=== PATIENT | male | born 1985 ===

== ENCOUNTER 2016-12-03 07:19 | Observation (INO) | payer BC ==
--- NOTE | 2016-12-03 07:41 | ED PDOC ---
Lower Extremity Pain/Injury Time Seen by Provider: 12/03/16 07:28 Chief Complaint (Nursing): Lower Extremity Problem/Injury Chief Complaint (Provider): Right knee pain History Per: Patient History/Exam Limitations: no limitations Onset/Duration Of Symptoms: Days (xsince yesterday, 12/02/16) Current Symptoms Are (Timing): Still Present Additional Complaint(s): Tapan Burden is a 31 year old male, with no previous medical history, who presents to the emergency department with a complaint of right knee pain which occurred after walking down the stairs while performing heavy lifting yesterday. States he "felt and heard a pop". Patient reports pain with weight bearing. PMD: none provided Past Medical History Reviewed: Historical Data, Nursing Documentation, Vital Signs Vital Signs: Last Vital Signs Temp 97.0 F L 12/03/16 07:28 Pulse 73 12/03/16 07:28 Resp 16 12/03/16 07:28 BP 122/72 12/03/16 07:28 Pulse Ox 98 12/03/16 07:28 - Medical History PMH: No Chronic Diseases - Family History Family History: States: Unknown Family Hx - Allergies Allergies/Adverse Reactions: Allergies Allergy/AdvReac Type Severity Reaction Status Date / Time No Known Allergies Allergy Verified 12/03/16 07:34 Review of Systems ROS Statement: Except As Marked, All Systems Reviewed And Found Negative Musculoskeletal: Positive for: Other (Right knee pain) Physical Exam - Reviewed Nursing Documentation Reviewed: Yes Vital Signs Reviewed: Yes - Physical Exam Appears: Positive for: Well, Non-toxic, No Acute Distress Cardiovascular/Chest: Positive for: Regular Rate, Rhythm Respiratory: Positive for: CNT, Normal Breath Sounds Extremity: Positive for: Normal ROM, Tenderness (right knee medially), Swelling (right knee medially) Neurologic/Psych: Positive for: Alert, Oriented. Negative for: Other (distal neuro vascular compromise.) - ECG O2 Sat by Pulse Oximetry: 98 (RA) Pulse Ox Interpretation: Normal Medical Decision Making Medical Decision Making: Time: 7:28am Initial Impression: right knee pain Initial Plan: * x- ray knee 3 views RT * x-ray Chest 2 views * Normal Saline 1,000 ml IV per 100 mls/hr * Labs * PT * EKG * Urine dipstick * Re-evaluation Scribe Attestation: Documented by Suzanne Peralta, acting as a scribe for Kang Amin MD. Provider Scribe Attestation: All medical record entries made by the Scribe were at my direction and personally dictated by me. I have reviewed the chart and agree that the record accurately reflects my personal performance of the history, physical exam, medical decision making, and the department course for this patient. I have also personally directed, reviewed, and agree with the discharge instructions and disposition. Disposition - Clinical Impression Clinical Impression: Knee injury - Patient ED Disposition Is Patient to be Admitted: Yes - Disposition Disposition Time: 08:00 Condition: FAIR - Pt Status Changed To: Hospital Disposition Of: Observation - POA Present On Arrival: None
[2016-12-03] MEDS ORDERED: Sodium Chloride 0.9% 1,000 ML IV STA (07:48)
--- NOTE | 2016-12-03 08:11 | CP.PCM.HP ---
History of Present Illness - History of Present Illness History of Present Illness: Chief Complaint : Severe Right Knee Pain HPI: 31 y/o gent, no significant PMH, presented to the ED because of severe right knee pain. 5 days ago, while playing wrestling with a friend, he made a step backwards and as soon as his right foot touched the ground , he felt a "pop " and experienced severe pain. He then started having right knee pain , worse on ambulation. He took NSAIDs for the pain however despite these, his pain persisted and worsened. His right knee would buckle when he ambulates and because of this and the increasing pain, he presented to the ED. Present on Admission - Present on Admission Any Indicators Present on Admission: No History of DVT/PE: No History of Uncontrolled Diabetes: No Urinary Catheter: No Decubitus Ulcer Present: No History Surgical Site Infection Following: None Review of Systems - Review of Systems All systems: reviewed and no additional remarkable complaints except - Constitutional Constitutional: absent: Chills, Fever, Weight Loss, Weakness - EENT Eyes: absent: Blurred Vision, Change in Vision, Loss of Vision Ears: absent: Ear Discharge, Ear Pain, Abnormal Hearing Nose/Mouth/Throat: absent: Epistaxis, Nasal Congestion, Nasal Discharge, Facial Pain - Cardiovascular Cardiovascular: absent: Chest Pain, Chest Pain at Rest, Chest Pain with Activity , Dyspnea on Exertion, Edema, Orthopnea - Respiratory Respiratory: absent: Cough, Dyspnea, Hemoptysis, Dyspnea on Exertion - Gastrointestinal Gastrointestinal: absent: Abdominal Pain, Diarrhea, Nausea, Vomiting - Genitourinary Genitourinary: absent: Change in Urinary Stream, Difficulty Urinating, Dysuria - Musculoskeletal Musculoskeletal: Arthralgias, Joint Swelling (right knee ), Limited Range of Motion (Right knee) - Integumentary Integumentary: absent: Lesions, Rash, Skin Ulcer - Neurological Neurological: absent: Abnormal Movements, Dizziness, Focal Weakness, Headaches - Psychiatric Psychiatric: absent: Anxiety, Depression, Suicidal Ideation - Endocrine Endocrine: absent: Polydipsia, Polyphagia, Polyuria - Hematologic/Lymphatic Hematologic: absent: Easy Bleeding, Easy Bruising, Lymphadenopathy Past Patient History - Infectious Disease Hx of Infectious Diseases: None - Tetanus Immunizations Tetanus Immunization: Unknown - Past Medical History & Family History Past Medical History?: No Past Family History: Reviewed and not pertinent - Past Social History Smoking Status: Heavy Smoker > 10 Cigarettes Daily Chewing Tobacco Use: No Cigar Use: No 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 Alcohol: Occasional Home Situation {Lives}: With Family Domestic Violence: Negative - CARDIAC Hx Cardiac Disorders: No - PULMONARY Hx Respiratory Disorders: No - NEUROLOGICAL Hx Neurological Disorder: No - HEENT Hx HEENT Problems: No - RENAL Hx Chronic Kidney Disease: No - ENDOCRINE/METABOLIC Hx Endocrine Disorders: No - HEMATOLOGICAL/ONCOLOGICAL Hx Blood Disorders: No - INTEGUMENTARY Hx Dermatological Problems: No - MUSCULOSKELETAL/RHEUMATOLOGICAL Hx Musculoskeletal Disorders: No - GASTROINTESTINAL Hx Gastrointestinal Disorders: No - GENITOURINARY/GYNECOLOGICAL Hx Genitourinary Disorders: No - PSYCHIATRIC Hx Psychophysiologic Disorder: No Hx Substance Use: No - SURGICAL HISTORY Hx Surgeries: No - ANESTHESIA Hx Anesthesia: No Hx Anesthesia Reactions: No Hx Malignant Hyperthermia: No Has any member of the family had a problem w/ anesthesia?: No Meds Allergies/Adverse Reactions: Allergies Allergy/AdvReac Type Severity Reaction Status Date / Time No Known Allergies Allergy Verified 12/03/16 07:34 Physical Exam - Constitutional Appears: Non-toxic, No Acute Distress - Head Exam Head Exam: ATRAUMATIC, NORMAL INSPECTION, NORMOCEPHALIC - Eye Exam Eye Exam: EOMI, Normal appearance, PERRL Pupil Exam: NORMAL ACCOMODATION - ENT Exam ENT Exam: Mucous Membranes Moist, Normal External Ear Exam - Neck Exam Neck exam: Positive for: Full Rom. Negative for: Lymphadenopathy, Meningismus - Respiratory Exam Respiratory Exam: NORMAL BREATHING PATTERN. absent: Rales, Wheezes, Respiratory Distress - Cardiovascular Exam Cardiovascular Exam: REGULAR RHYTHM, +S1, +S2 - GI/Abdominal Exam GI & Abdominal Exam: Normal Bowel Sounds, Soft. absent: Tenderness - Extremities Exam Extremities exam: Positive for: joint swelling (right knee), normal capillary refill, tenderness (right knee luis medially), pedal pulses present. Negative for: calf tenderness, full ROM (right knee pain on ROM), pedal edema - Back Exam Back exam: FULL ROM, NORMAL INSPECTION. absent: CVA tenderness (L), CVA tenderness (R), paraspinal tenderness, vertebral tenderness - Neurological Exam Neurological exam: Alert, CN II-XII Intact, Oriented x3, Reflexes Normal - Psychiatric Exam Psychiatric exam: Normal Affect, Normal Mood - Skin Skin Exam: Dry, Normal Color, Warm Results - Vital Signs Recent Vital Signs: Last Vital Signs Temp 97.0 F L 12/03/16 07:28 Pulse 73 12/03/16 07:28 Resp 16 12/03/16 07:28 BP 122/72 12/03/16 07:28 Pulse Ox 98 12/03/16 08:05 - Labs Result Diagrams: 12/03/16 08:00 12/03/16 08:00 - EKG Data EKG Interpreted by: Myself EKG shows normal: Sinus rhythm Rate: Normal Assessment & Plan (1) Pain of right knee after injury Assessment and Plan: (1) Pain of right knee after injury Status: Acute Priority: High Onset Date: ~11/28/16 Severe right knee pain, heard a "pop" in the knee, buckling and sevre pain on ambulation despite analgesics Ortho consult _ Dr Jimenez Will await Ortho recommendation for any imaging Pain mgt NPO IVF CBC, CMP, PT, PTT, Type and Screen , UA CXR EKG : normal Low cardiac risk for surgery- good functional capacity ( 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 Hyperkalemia due to hemolyzed specimen - rpt Potassium Status: Acute Priority: High Onset Date: ~11/28/16 Decision To Admit - Pt Status Changed To: Hospital Disposition Of: Observation - . Bed Request Type: Med/Surg Admitting Physician: Delia Brothers
[2016-12-03 08:24] LABS: BASO % 0.4 % (0.0-2.0); EOS # 0.3 K/uL (0.0-0.7); HEMATOCRIT 50.6 % (35.0-51.0); LYMPH # 3.4 K/uL (1.0-4.3); LYMPH % 32.1 % (20.0-40.0); MEAN CELL VOLUME 89.7 fl (80.0-94.0); MEAN CORPUSCULAR HEMOGLOBIN 31.2 pg (27.0-31.0); MEAN CORPUSCULAR HGB CONC 34.7 g/dL (33.0-37.0); MEAN PLATELET VOLUME 8.7 fl (7.2-11.7); MONO # 0.8 K/uL (0.0-0.8); MONO % 7.7 % (0.0-10.0); NEUT # 6.1 K/uL (1.8-7.0); NEUT % 56.8 % (50.0-75.0); NRBC % 0.1 % (0.0-0.0); RED CELL DISTRIBUTION WIDTH 12.9 % (11.5-14.5); WHITE BLOOD COUNT 10.7 K/uL (4.8-10.8)
[2016-12-03 08:25] LABS: CHLORIDE 106 mmol/L (98-107)
[2016-12-03 08:26] LABS: SODIUM 141 mmol/l (132-148)
[2016-12-03 08:29] LABS: ALB/GLOB RATIO 1.4 (1.0-2.1); ALKALINE PHOSPHATASE 58 U/L (38-126); AST/SGOT 47 U/L (17-59); BILIRUBIN,TOTAL 0.9 mg/dl (0.2-1.3); BLOOD UREA NITROGEN 14 mg/dl (9-20); CARBON DIOXIDE 26 mmol/L (22-30); GFR AFRICAN-AMERICAN > 60; TOTAL PROTEIN 8.2 G/DL (6.3-8.2)
[2016-12-03 08:30] LABS: ALT/SGPT 37 U/L (21-72); CALCIUM 9.4 mg/dL (8.4-10.2); GLUCOSE,RANDOM 92 mg/dL (75-110)
[2016-12-03 08:33] LABS: POTASSIUM 5.1 MMOL/L (3.6-5.0)
[2016-12-03] MEDS ORDERED: Bupivacaine 0.5% Inj(30mL) ONE (08:56)
[2016-12-03] MEDS ORDERED: Lidocaine 1% Inj (20ml) ONE (08:56)
[2016-12-03] MEDS ORDERED: Bacitracin Ointment 30 GM TUBE ONE (08:57)
[2016-12-03] MEDS ORDERED: Absorbable Gelatin Sponge Size 100 ONE (09:01)
[2016-12-03] MEDS ORDERED: Midazolam 2 MG/2 ML VIAL ONE ×2 (09:16→10:48)
[2016-12-03] MEDS ORDERED: Lidocaine 2% Jelly (5 ml) TOP ONE (09:16)
[2016-12-03] MEDS ORDERED: Propofol 10 mg/ml Inj (20 ML) ONE (09:16)
[2016-12-03] MEDS ORDERED: Lidocaine Hydrochloride 5 ML INJ ONE (09:16)
[2016-12-03 09:37] LABS: BLOOD UREA NITROGEN 13 mg/dl (9-20); CALCIUM 9.2 mg/dL (8.4-10.2); CARBON DIOXIDE 25 mmol/L (22-30); CHLORIDE 107 mmol/L (98-107); GFR AFRICAN-AMERICAN > 60; GLUCOSE,RANDOM 90 mg/dL (75-110); POTASSIUM 4.4 MMOL/L (3.6-5.0); SODIUM 142 mmol/l (132-148)
[2016-12-03] MEDS ORDERED: Succinylcholine 200 mg/10 ml Inj IV ONE (10:22)
[2016-12-03] MEDS ORDERED: Lidocaine 4% (Laryng-O-Jet) Kit MM ONE (10:23)
[2016-12-03] MEDS ORDERED: Neostigmine Methylsulfate 2 MG/2 ML ML IV ONE (10:23)
[2016-12-03] MEDS ORDERED: Rocuronium 10 mg/ml (5 ml) ONE (10:26)
[2016-12-03] MEDS ORDERED: Lactated Ringer's 1,000 ML IV ONE (10:50)
--- NOTE | 2016-12-03 11:12 | RAD ---
HISTORY: preop COMPARISON: AllNo prior. TECHNIQUE: Chest PA and lateral FINDINGS: LUNGS: Suspect minor bibasilar linear atelectasis. In situ bilateral nipple rings. PLEURA: No significant pleural effusion identified. No pneumothorax apparent. CARDIOVASCULAR: Normal. OSSEOUS STRUCTURES: Minor multilevel degenerative spondylosis of the thoracic spine. . Questionable old fracture deformity right distal VISUALIZED UPPER ABDOMEN: Clavicle Normal. OTHER FINDINGS: None. IMPRESSION: Suspect minor bibasilar linear atelectasis
[2016-12-03] MEDS ORDERED: Bupivacaine HCl/Epi 0.5% 1:20000 30 ML SOL IJ ONE (12:17)
[2016-12-03] MEDS ORDERED: Lidocaine 1% Inj (20ml) IJ ONE ×2 (12:33)
--- NOTE | 2016-12-03 12:35 | RAD ---
PROCEDURE: Right knee 12/03/2016 Three views of the right knee performed. HISTORY: pain COMPARISON: No prior study available comparison. FINDINGS: BONES: No evidence of acute displaced fracture nor dislocation. The osseous structures appear intact. Very tiny posterior patellar osteophytes are felt be present. Suspect small suprapatellar joint effusion. . Note made of a tiny elliptical shaped calcific like density within the prepatellar soft tissues also appear slightly edematous. . . The changes could be posttraumatic however rule out cellulitis or other inflammatory process JOINTS: As above JOINT EFFUSION: As above. OTHER FINDINGS: None. IMPRESSION: No acute fractures. The tiny posterior patellar osteophyte formation. Suspect small suprapatellar joint effusion mild patella soft tissue swelling of uncertain etiology as detailed above. Followup studies as necessary the
--- NOTE | 2016-12-03 13:17 | CARD ---
APPROVED REPORT EKG Measurement Heart [id number] <Conclusion> Normal sinus rhythm Normal ECG
[2016-12-03] MEDS ORDERED: Bupivacaine HCl 0.25% PF (30 ml) Inj ONE (13:23)
[2016-12-03] MEDS: HYDROmorphone 0.5 mg/0.5 ml ISec IVP PRN ×3 (14:32→15:15)
[2016-12-03] MEDS ORDERED: Lactated Ringer's 1,000 ML IV SCH (14:35)
[2016-12-03] MEDS ORDERED: HYDROmorphone 0.5 mg/0.5 ml ISec ONE (14:40)
--- NOTE | 2016-12-03 14:43 | PCM.ANESB3 ---
Femoral Nerve Block - Femoral Nerve Block Date of Procedure: 12/03/16 Anesthesiologist: Dr. Perez Pre-Procedure Diagnosis: S/P right knee arhroscopy with ACL and meniscal repair Post-Procedure Diagnosis: S/P right knee arhroscopy with ACL and meniscal repair Procedure Performed: Femoral Nerve Block Right - Procedure Femoral Nerve Block: The procedure was explained to the patient that it is for the post-operative pain management. Consent was obtained after a thorough discussion with the patient regarding the benefits and possible complications of local anesthetic block of the femoral nerve at the inguinal crease area. The patient was brought to the operating room and standard monitors were applied. Time-out was held with the circulating nurse to confirm the correct side and the appropriate block. After the surgery while still under general anesthesia, patient in supine position with fully extended lower extremities and the right groin exposed. The femoral artery was then carefully palpated. The ultrasound transducer was then applied to this area in the transverse plane and the femoral nerve was visualized lateral to the femoral artery and underneath the fascia iliaca. After thorough identification, the inguinal crease area was prepped with Chloraprep solution. At this point, a #21 gauge Stimuplex 4-inch needle was inserted immediately lateral to the femoral artery pulse at the inguinal crease and advanced perpendicularly. The needle was inserted to the ultrasound transducer in-plane towards the femoral nerve in a [id number] direction. Needle advancement was performed carefully under direct ultrasound visualization. Nerve stimulator was used and twitch of the quadriceps muscle was obtained at current of 0.3MA. After negative aspiration, 5cc of 0.375% Bupivacaine with 1:200,000 epinephrine was injected and this was followed with 25cc of 0.375% Bupivacaine with 1:200,000 epinephrine. Under ultrasound guidance the local anesthetics were observed spreading below fascia iliaca and around the femoral nerve. The needle was removed intact and sterile dressing was applied. The patient had stable vital signs, was conscious and in no apparent distress. The patient tolerated the femoral nerve block well with stable vital signs and was awaken from anesthesia and transported to PACU.
--- NOTE | 2016-12-03 15:28 | RAD ---
PROCEDURE: Right Knee Radiographs. HISTORY: postop COMPARISON: None. FINDINGS: BONES: Postoperative changes with questionable interference screw within a bone tunnel located in the proximal medial right tibial metaphysis. JOINTS: Normal. No osteoarthritis. JOINT EFFUSION: Small amount joint effusion exhibiting air-fluid level. There may also be drainage catheters in place. OTHER FINDINGS: None. IMPRESSION: Postoperative changes with bone tunnel questionably containing interference screw located in the medial proximal tibial metaphysis. Postoperative sequela within the soft tissues as above. Probable in situ drainage catheters.
[2016-12-03 17:03] VITALS: RESP 18
[2016-12-03 17:31] VITALS: BP 110/70; PULSE 92; TEMP 98.3; O2SAT 97
--- NOTE | 2016-12-03 17:53 | PCM.SURG1 ---
Surgeon's Initial Post Op Note - Surgeon's Notes Surgeon: Barbara Order Dispatcher Chief: RUDOLPH Groves/2nd assist Joe Blank Type of Anesthesia: General Endo Anesthesia Administered By: Dr Perez Pre-Operative Diagnosis: posttraumatic derangementR Knee Operative Findings: completet rupture ACL. peripheral separation medial meniscus. tricompartmental synovitis Post-Operative Diagnosis: complete rupture ACL. peripheral sepaaration medial meniscus. tear lateral meniscus. tricompartmental synovitis. \ Operation Performed: Primary ACL reconsturction with tibialis tendon allograft. primary repair medial meniscus. partial lateral meniscus. tricompartmental synovitis. applx knee immobilizer Specimen/Specimens Removed: synovium/cartilage/bone. femoral/tibial/patella components Estimated Blood Loss: EBL {In ML}: 15 Blood Products Given: N/A Drains Used: No Drains, Hemovac Post-Op Condition: Good Date of Surgery/Procedure: 12/03/16 Time of Surgery/Procedure: 11:50 (time in room 10:50)
--- NOTE | 2016-12-03 18:19 | CP.PCM.DIS ---
Provider - Provider Date of Admission: 12/03/16 08:03 Attending physician: Delia Brothers MD Consults: Ortho: Dr Jimenez Time Spent in preparation of Discharge (in minutes): 15 Diagnosis - Discharge Diagnosis (1) Pain of right knee after injury Status: Acute Priority: High Onset Date: ~11/28/16 (2) Tears of meniscus and anterior cruciate ligament of right knee Status: Acute Hospital Course - Lab Results Lab Results: Most Recent Lab Values WBC 10.7 K/uL (4.8-10.8) 12/03/16 08:00 RBC 5.64 Mil/uL (4.40-5.90) 12/03/16 08:00 Hgb 17.6 g/dL (12.0-18.0) 12/03/16 08:00 Hct 50.6 % (35.0-51.0) 12/03/16 08:00 MCV 89.7 fl (80.0-94.0) 12/03/16 08:00 MCH 31.2 pg (27.0-31.0) H 12/03/16 08:00 MCHC 34.7 g/dL (33.0-37.0) 12/03/16 08:00 RDW 12.9 % (11.5-14.5) 12/03/16 08:00 Plt Count 232 K/uL (130-400) 12/03/16 08:00 MPV 8.7 fl (7.2-11.7) 12/03/16 08:00 Neut % (Auto) 56.8 % (50.0-75.0) 12/03/16 08:00 Lymph % (Auto) 32.1 % (20.0-40.0) 12/03/16 08:00 [place] % (Auto) 7.7 % (0.0-10.0) 12/03/16 08:00 Eos % (Auto) 3.0 % (0.0-4.0) 12/03/16 08:00 Baso % (Auto) 0.4 % (0.0-2.0) 12/03/16 08:00 Neut # 6.1 K/uL (1.8-7.0) 12/03/16 08:00 Lymph # 3.4 K/uL (1.0-4.3) 12/03/16 08:00 [place] # 0.8 K/uL (0.0-0.8) 12/03/16 08:00 Eos # 0.3 K/uL (0.0-0.7) 12/03/16 08:00 Baso # 0.0 K/uL (0.0-0.2) 12/03/16 08:00 PT 11.2 Seconds (9.8-13.1) 12/03/16 08:00 INR 1.0 (0.9-1.2) 12/03/16 08:00 Sodium 142 mmol/l (132-148) 12/03/16 09:00 Potassium 4.4 MMOL/L (3.6-5.0) 12/03/16 09:00 Chloride 107 mmol/L (98-107) 12/03/16 09:00 Carbon Dioxide 25 mmol/L (22-30) 12/03/16 09:00 Anion Gap 14 (10-20) 12/03/16 09:00 BUN 13 mg/dl (9-20) 12/03/16 09:00 Creatinine 0.7 mg/dL (0.8-1.5) L 12/03/16 09:00 Est GFR ( Amer) > 60 12/03/16 09:00 Est GFR (Non-Af Amer) > 60 12/03/16 09:00 Random Glucose 90 mg/dL (75-110) 12/03/16 09:00 Calcium 9.2 mg/dL (8.4-10.2) 12/03/16 09:00 Total Bilirubin 0.9 mg/dl (0.2-1.3) 12/03/16 08:00 AST 47 U/L (17-59) 12/03/16 08:00 ALT 37 U/L (21-72) 12/03/16 08:00 Alkaline Phosphatase 58 U/L (38-126) 12/03/16 08:00 Total Protein 8.2 G/DL (6.3-8.2) 12/03/16 08:00 Albumin 4.8 g/dL (3.5-5.0) 12/03/16 08:00 Globulin 3.4 gm/dL (2.2-3.9) 12/03/16 08:00 Albumin/Globulin Ratio 1.4 (1.0-2.1) 12/03/16 08:00 Blood Type B POSITIVE 12/03/16 09:00 Blood Type Confirm B POSITIVE 12/03/16 09:23 Antibody Screen Negative 12/03/16 09:00 BBK History Checked No verified bt 12/03/16 09:00 - Hospital Course Hospital Course: 31 y/o gent came in bec of severe right knee pain after an injury. Knee xray: no fracture, noted suprpatellar effusion and soft tissue swelling. Ortho consulted- pt then underwent ACL and Meniscus Tear Repair. (1) Pain of right knee after injury (2.) ACL Tear, Meniscus Tear s/p Repair Severe right knee pain, heard a "pop" in the knee, buckling and severee pain on ambulation despite analgesics Ortho consulted Dr Jimenez Under went repair of ACL and meniscus tear cleared by Dr Jimenez for discharge home Pain mgt - percocet PT/OT consulted- crutch training done, 10 % wt bearing Outpt PT 3. Hyperkalemia due to hemolyzed specimen - rpt Potassium normal Discharge Exam - Head Exam Head Exam: ATRAUMATIC, NORMAL INSPECTION, NORMOCEPHALIC - Eye Exam Eye Exam: EOMI, Normal appearance, PERRL Pupil Exam: NORMAL ACCOMODATION - ENT Exam ENT Exam: Mucous Membranes Moist, Normal External Ear Exam - Neck Exam Neck exam: Full Rom - Respiratory Exam Respiratory Exam: NORMAL BREATHING PATTERN. absent: Respiratory Distress - Cardiovascular Exam Cardiovascular Exam: REGULAR RHYTHM, +S1, +S2 - GI/Abdominal Exam GI & Abdominal Exam: Normal Bowel Sounds, Soft. absent: Tenderness - Extremities Exam Extremities exam: normal capillary refill, pedal pulses present Additional comments: no calf tenderness right knee with immobilizer - Back Exam Back exam: FULL ROM. absent: CVA tenderness (L), CVA tenderness (R), paraspinal tenderness - Neurological Exam Neurological exam: Alert, CN II-XII Intact, Oriented x3, Reflexes Normal - Psychiatric Exam Psychiatric exam: Normal Affect, Normal Mood - Skin Skin Exam: Dry, Normal Color, Warm Discharge Plan - Discharge Medications Prescriptions: oxyCODONE/Acetaminophen [Percocet 5/325 mg Tab] 1 ea PO Q4 PRN #1 tab PRN Reason: Pain, Moderate (4-7) - Follow Up Plan Condition: GOOD Disposition: HOME/ ROUTINE Additional Instructions: Outpt PT ff up with Dr Jimenez next wk Referrals: Leif Jimenez III, MD [Staff Provider] -
--- NOTE | 2016-12-04 11:08 | OP ---
PROCEDURE DATE: 12/03/2016 PREOPERATIVE DIAGNOSIS: Posttraumatic derangement of the right knee. POSTOPERATIVE DIAGNOSES: 1. Complete tear of the anterior cruciate ligament. 2. Peripheral separation medial meniscus. 3. Partial tear lateral meniscus. 4. Tricompartmental synovitis. PROCEDURES: 1. Arthroscopic ACL reconstruction with tibialis tendon autograft. 2. Repair peripheral separation medial meniscus. 3. Partial lateral meniscectomy. 4. Partial tricompartmental synovectomy. 5. Application of Terry Dickerson compression dressing and knee immobilizer. SURGEON: Leif Jimenez MD [employer] COLORER: Jessica Hagen, certified registered nursing first leveler. SECOND INVENTORY CLERK: Joe Blank. ANESTHESIA: General endotracheal anesthesia; Dr. Lainez. COMPLICATIONS: None. DRAINS: None. OPERATIVE INDICATION: The patient is a gentleman who has a BMI of approximately 50 and sustained an injury to the knee. The patient sustained a torsional injury, noted a pop, immediate pain and restri cted range of motion. The patient presented to the [facility] and presented to my office emergent ly, which revealed evidence of a complete tear of the ACL, medial meniscal separation and tear of the lateral meniscus. Pros, cons, risks and benefits of surgical approach were discussed. The possibil ity of mechanical failure, infection, thromboembolic disease, secondary or tertiary surgery is discus sed. The patient can no longer stand the discomfort. Informed consent is obtained from the patient and his mother, who is a paramedical individual having worked in doctors offices. OPERATIVE PROCEDURE: After the satisfactory induction of general endotracheal anesthesia by Dr. Lainez, after having identified the side, site and procedure and a critical pause/timeout, after the satisfa ctory induction of the anesthetic, after having obtained informed consent in the above fashion, the r [facility] lower extremity was prepped and free draped in the usual fashion for lower extremity surgery. A tourniquet had been applied, but is not yet inflated. After exsanguinating the limb using a 6-inch Esmarch bandage, the tourniquet which had been applied is inflated to 350 mmHg. At this point in omar e, the joint is insufflated with 10 mL of 1% lidocaine without epinephrine. Using a #11 blade follow ed by spreading and introduction of a blunt trocar in the anterolateral portal was described. This h aving been accomplished, the arthroscope was introduced. There was found to be an egress bright bloo d. With thee surgeon exerting a gentle valgus stress, triangulation was accomplished using a #18 gau ge spinal needle 1 thumb's breadth medial to the inferior pole of the patella followed by a #11 blade , followed by spreading, followed by introduction of the blunt trocar. With the arthroscope introduc ed anterolaterally, a careful partial tricompartmental synovectomy was accomplished to improve visual ization and to ablate irritative tissue. With the arthroscope anterolaterally, a careful partial tri compartmental synovectomy was completed. Bleeding points controlled with the Arthrocare wand. With the arthroscope anterolaterally, a careful partial tricompartmental synovectomy was completed. There was found to be a complete rupture of the anterior cruciate ligament. The stump was debrided and 2 additional anteromedial portals were accomplished to access the area of the tibial plateau for later reconstruction and an anterior central portal was accomplished using a #18 gauge spinal needle, follo wed by a #11 blade, followed by spreading. With the arthroscope anterolaterally, a careful partial t ricompartmental synovectomy was completed, both to improve visualization and to ablate irritative tis you. With the arthroscope anterolaterally, a partial tricompartmental synovectomy was completed. Th is having been accomplished, with the surgeon exerting a gentle valgus stress, the posterior horn of the medial meniscus was exposed to advantage. There was found to be a tear of the deep posterior hor n in the area of the white-red zone and the peripheral separation extends through that area. This sanford ving been accomplished, the peripheral separation was freshened using the 3.5 mm shaver. This having been accomplished, again with the surgeon exerting a gentle valgus stress to expose the deep posteri or horn, the Linvatec knot passer, the Linvatec meniscal repair instrument is used. The was pl aced into the area most medially of the tear and with the device the anchor is introduced through the tear. The anchor is fired and the instrument was brought back into the joint, it was tensioned appr opriately and the secondary reintroduction of the anchor was accomplished. This was accomplished 4 t imes with 4 different anchors. Please refer to the video photographs. The repair was found to be ex cellent. At this point in time, with the arthroscope anterolaterally, with the knee in figure-of-4 p osition, the inner free edge of the lateral meniscus was smoothed using the arthroscopic shaver. Usi ng combination of straight biting basket forceps and side biting basket forceps, a partial lateral me niscectomy was accomplished. With the partial lateral meniscectomy having been accomplished, the inn er free edge is smoothed using the Arthrocare wand. At this point in time, with the arthroscope ante rolaterally, the arthroscopic bur was placed in through the anterior central portal and a notchplasty was accomplished. With the arthroscope anterolaterally, a careful partial tricompartmental synovect shannan was completed. With the arthroscope anterolaterally, the anterior cruciate ligament insertion to the tibial plateau was debrided. This was accomplished as well with the [employer] SERFAS wand. The t ibial guide was set at 55 degrees and the skin was dimpled and approximately a 2 inch incision as allyson cribed in that region. The skin incision was carried down through the skin and subcutaneous tissue. The dissection was carried down to the periosteum using the electrocautery. The bare area was ident ified. The guide wire was placed with the knee in 90 degrees of flexion and the guide wire was place d in an appropriate position. Because of the patient's size, he was 300 pounds, it is favored just a bit anteriorly. This having been accomplished, the reaming was accomplished with the 10 mm reamer. The graft had been prepared and with this having been accomplished, the reaming was accomplished int o the area of the femur. The tunnels are documented. There is no posterior breakout in either the f emur or tibia. This having been accomplished, reaming having been accomplished to 35 mm on the femor al side, the allograft having been prepared, the allograft was placed on the inner tube inserter. The inner tube inserter was introduced into the femoral condyle. With the inner tube inserter having been introduced, the graft positio n was found to be acceptable. The device was deployed in the femoral condyle and the tensioning was found to be excellent. At this point in time, the graft was brought out through the tibial portal an d this was secured with a soft tissue interference fit. Autograft allograft bone grafting to the rem ainder of the tibia was accomplished. The wound was thoroughly irrigated. The meniscal repair was f ound to be excellent. The anterior cruciate ligament tension was excellent. The wound was thoroughl y irrigated and closure of the periosteum was with FiberWire followed by Vicryl and 2-0 Quill plastic closure. Portals were closed with Vicryl and nylon. Intra-articular injection was deferred to the block by anesthesia. A Terry Dickerson compression dressing and knee immobilizer was applied. Postoper ative x-rays reveal acceptable position of the construct. OPERATIVE PROCEDURES: 1. Arthroscopic anterior cruciate ligament reconstruction with allograft tibialis tendon. 2. Surgical arthroscopy, repair peripheral meniscal and medial meniscal separation. 3. Surgical arthroscopy, partial lateral meniscectomy. 4. Surgical arthroscopy, partial tricompartmental synovectomy. 5. Autograft allograft bone graft to the tibia. Certified nursing first leveler, Jessica Hagen was necessary for the execution of the operation at t his point in time. Leif Jimenez MD cc: [id number] TT: 12/04/2016 11:07:29 cn
== END 2016-12-03 18:00 | disposition home or self-care (01) ==
LOC: H.ER 07:19 → H.ERHOLD 08:03
PROVIDERS: ADMIT Internal Medicine; ATTEND Internal Medicine
DX: S83.511A Sprain of anterior cruciate ligament of right knee, initial encounter (principal); X58.XXXA Exposure to other specified factors, initial encounter; Y93.9 Activity, unspecified; Y92.9 Unspecified place or not applicable; S83.281A Other tear of lateral meniscus, current injury, right knee, initial encounter; S83.221A Peripheral tear of medial meniscus, current injury, right knee, initial encounter; E87.5 Hyperkalemia
CPT/HCPCS: 29876; 29881; 29888; 64447; 71020; 73560; 73562; 80053; 85025; 85610; 86850; 86900; 88307; 93005; 97161; 99283; C1713; C1776; G0378; G8978; G8979; G8980; J0171; J0330; J0690; J1170; J1885; J2250; J2704; J2710; J2765; J3010; J7030; J7040; J7120